=== PATIENT | female | born 1985 | race Caucasian/White ===

== ENCOUNTER 2020-10-05 22:56 | Inpatient (IN) ==
[2020-10-05 23:36] LABS: Urine Appearance Turbid; Urine Bilirubin Negative (Negative); Urine Blood Negative (Negative); Urine Color Yellow; Urine Glucose Negative (Negative); Urine Ketones Negative (Negative); Urine Nitrite Negative (Negative); Urine Protein 1+(30 mg/dL) (Negative); Urine Specific Gravity 1.021 (1.010-1.030); Urine Urobilinogen Negative (Negative)
[2020-10-05 23:47] LABS: Urine Bacteria Absent (Absent); Urine Red Blood Cell 3+(>10/hpf) (Absent); Urine White Blood Cell Trace(0-5/hpf) (Absent)
[2020-10-05 23:50] LABS: Urine Benzodiazepine Screen None Detected (None Detect); Urine Cannabinoids Screen Presumptive Positive (None Detect); Urine Opiates Screen None Detected (None Detect)
[2020-10-06 00:51] LABS: ALT 12 U/L (7-52); AST 21 U/L (13-39); Albumin 4.3 g/dL (3.2-5.2); Albumin/Globulin Ratio 1.7 (1-3); Alkaline Phosphatase 69 U/L (34-104); Anion Gap 8 mmol/L (2-11); BUN/Creatinine Ratio 18.3 (8-20); Blood Urea Nitrogen 17 mg/dL (6-24); CO2 Carbon Dioxide 25 mmol/L (22-32); Calcium 9.1 mg/dL (8.6-10.3); Chloride 107 mmol/L (101-111); EGFR Non-African American 68.6 (>60); Globulin 2.6 g/dL (2-4); Glucose 117 mg/dL (70-100); Sodium 140 mmol/L (135-145); Total Protein 6.9 g/dL (6.4-8.9)
[2020-10-06 00:53] LABS: ABS Basophils 0.1 10^3/ul (0-0.2); ABS Eosinophils 0.1 10^3/ul (0-0.6); ABS Lymphocytes 2.6 10^3/ul (1.0-4.8); ABS Monocytes 0.9 10^3/ul (0-0.8); ABS Neutrophils 6.4 10^3/ul (1.5-7.7); Hematocrit 39 % (35-47); Hemoglobin 13.5 g/dL (12.0-16.0); Lymphocyte % 25.8 %; Mean Corpuscular HGB Conc 34 g/dL (31-36); Mean Corpuscular Hemoglobin 32 pg (27-31); Mean Corpuscular Volume 92 fL (80-97); Mean Platelet Volume 8.5 fL (7.4-10.4); Platelet Count 376 10^3/uL (150-450); Red Blood Count 4.26 10^6 /uL (3.70-4.87); Red Cell Distribution Width 14 % (10-15); White Blood Count 10.1 10^3/uL (3.5-10.8)
[2020-10-06 00:59] LABS: HCG Pregnancy 0.81 mIU/mL
[2020-10-06 01:27] LABS: Acetaminophen < 15 mcg/mL; Alcohol, S < 10 mg/dL (<10); Salicylate < 2.50 mg/dL (<30)
[2020-10-06 01:42] LABS: TSH Ultra Thyroid Stim Horm 0.76 mcIU/mL (0.34-5.60)
[2020-10-06] MEDS ORDERED: Potassium Chlor 20 meq TAB.ER PO ONE (02:29)
[2020-10-06] MEDS ORDERED: Haloperidol 5 mg/ml SDV IV/IM 5 MG/ML AMP IM ONE (03:05)
[2020-10-06] MEDS ORDERED: Al Hydrox/Mg Hydrox/Simet LIQ 30 ML UDC PO PRN (07:25)
[2020-10-06] MEDS: Vitamin THERAPEUTIC TAB PO SCH (11:23)
[2020-10-06] MEDS ORDERED: FLUVOXAMINE 100 MG PO SCH (12:00)
[2020-10-06] MEDS: Nicotine PATCH 14 MG/24 HR PATCH TRANSDERM SCH (13:15)
[2020-10-06] MEDS: CMC:FluvoxaMINE 50 mg TAB (NF) PO SCH (13:20)
[2020-10-07] MEDS: Vitamin THERAPEUTIC TAB PO SCH (09:13)
[2020-10-07] MEDS: Nicotine PATCH 14 MG/24 HR PATCH TRANSDERM SCH (09:13)
[2020-10-07] MEDS: CMC:FluvoxaMINE 50 mg TAB (NF) PO SCH (10:51)
[2020-10-08] MEDS: Vitamin THERAPEUTIC TAB PO SCH (08:31)
[2020-10-08] MEDS: Nicotine PATCH 14 MG/24 HR PATCH TRANSDERM SCH (08:31)
[2020-10-08] MEDS: CMC:FluvoxaMINE 50 mg TAB (NF) PO SCH (08:31)
[2020-10-09] MEDS: Nicotine PATCH 14 MG/24 HR PATCH TRANSDERM SCH (07:32)
[2020-10-09] MEDS: CMC:FluvoxaMINE 50 mg TAB (NF) PO SCH (07:33)
[2020-10-09] MEDS: Vitamin THERAPEUTIC TAB PO SCH (07:33)
[2020-10-09] MEDS: Nicotine GUM 2MG FRUIT FLAVOR PO PRN (21:06)
[2020-10-10 07:20] LABS: HDL Cholesterol 69.7 mg/dL
[2020-10-10] MEDS: Vitamin THERAPEUTIC TAB PO SCH (08:12)
[2020-10-10] MEDS: Nicotine PATCH 14 MG/24 HR PATCH TRANSDERM SCH (08:12)
[2020-10-10] MEDS: CMC:FluvoxaMINE 50 mg TAB (NF) PO SCH (08:12)
[2020-10-10] MEDS: Nicotine GUM 2MG FRUIT FLAVOR PO PRN ×2 (12:35→17:51)
[2020-10-10] MEDS: Clotrimazole 1% CREAM 45 GM TOPICAL SCH (20:11)
[2020-10-10] MEDS ORDERED: Miconazole VAG 200 mg SUPP VAGINAL SCH (21:00)
[2020-10-11] MEDS: Vitamin THERAPEUTIC TAB PO SCH (08:44)
[2020-10-11] MEDS: CMC:FluvoxaMINE 50 mg TAB (NF) PO SCH (08:44)
[2020-10-11] MEDS: Nicotine PATCH 14 MG/24 HR PATCH TRANSDERM SCH (08:45)
[2020-10-11] MEDS: Clotrimazole 1% CREAM 45 GM TOPICAL SCH (08:46)
[2020-10-11] MEDS ORDERED: Miconazole TOPICAL CREAM 2% 30 GM TOPICAL SCH (09:00)
[2020-10-11 09:31] VITALS: BP 109/61
== END 2020-10-11 08:45 | DRG 885 ==
LOC: ED 22:56 → BSU 10-06 08:25
PROVIDERS: ADMIT Psychiatry & Neurology Psychiatry; ATTEND Psychiatry & Neurology Psychiatry